=== PATIENT | male | born 1960 | race Caucasian/White ===

== ENCOUNTER 2022-05-07 18:01 | Emergency (ER) | payer BC ==
[~2022-05-07] VITALS: Ht 175.3 cm; Wt 75.0 kg
[2022-05-07 18:17] VITALS: BP 130/98
[2022-05-07] MEDS ORDERED: CHOLESTEROL (18:22)
[2022-05-07 18:30] VITALS: BP 117/89
[2022-05-07 18:45] VITALS: BP 141/82
[2022-05-07] MEDS ORDERED: KEFLEX500 MG PO (19:03)
[2022-05-07 19:07] VITALS: BP 141/82
== END 2022-05-07 19:13 | disposition home or self-care (01) | DRG 605 ==
LOC: ED 18:01
PROC: 0HQEXZZ Repair Left Lower Arm Skin, External Approach (ICD-10-PCS; principal; 2022-05-07)
DX: S51.012A Laceration without foreign body of left elbow, initial encounter (principal); W22.09XA Striking against other stationary object, initial encounter; Y93.89 Activity, other specified; Y92.007 Garden or yard of unspecified non-institutional (private) residence as the place of occurrence of the external cause

== ENCOUNTER 2024-01-10 21:21 | Emergency (ER) | payer BC ==
[~2024-01-10] VITALS: Ht 175.3 cm; Wt 75.0 kg
[~2024-01-10 21:21] MED LIST: CHOLESTEROL; KEFLEX500 MG PO
[2024-01-11 01:10] VITALS: BP 122/89
== END 2024-01-11 01:10 | disposition home or self-care (01) | DRG 563 ==
LOC: ED 21:21
DX: S93.402A Sprain of unspecified ligament of left ankle, initial encounter (principal); W55.22XA Struck by cow, initial encounter; Y92.008 Other place in unspecified non-institutional (private) residence as the place of occurrence of the external cause